=== PATIENT | male | born 1950 | race Caucasian/White ===

== ENCOUNTER 2017-11-17 17:12 | Emergency (ER) | payer OTHER, MEDICARE ==
[~2017-11-17] VITALS: Ht 180.3 cm; Wt 81.8 kg
[~2017-11-17 17:12] MED LIST: GABA-532 PO
[2017-11-17 17:31] VITALS: BP 141/91
== END 2017-11-17 18:29 | disposition home or self-care (01) ==
LOC: ER 17:13
DX: S82.301A Unspecified fracture of lower end of right tibia, initial encounter for closed fracture (principal); F10.129 Alcohol abuse with intoxication, unspecified; Z60.2 Problems related to living alone; W01.0XXA Fall on same level from slipping, tripping and stumbling without subsequent striking against object, initial encounter; Y93.89 Activity, other specified; Y92.89 Other specified places as the place of occurrence of the external cause; Y99.8 Other external cause status; Y90.9 Presence of alcohol in blood, level not specified
CPT/HCPCS: 29125; 29515; 73560; 73610; 99284

== ENCOUNTER 2018-02-02 15:48 | Emergency (ER) | payer MEDICARE, OTHER ==
[~2018-02-02] VITALS: Ht 180.3 cm; Wt 81.8 kg
[~2018-02-02 15:48] MED LIST changes: +CLOP75TA35 PO; +DILT180C66 PO; +FOLI1TAB16 PO; -GABA-532 PO; +GABA300C PO; +MULT-1179 PO; +OMEP20CA10 PO; +SIMV20TA5 PO; +THI100T PO; +TRAM50TA2 PO; +TRAZ-146 PO
[2018-02-02 16:33] LABS: BASOPHILS % (AUTO) 0.3 % (0-1); EOSINOPHILS % (AUTO) 0.2 % (0-6); HEMATOCRIT 43.5 % (42.0-52.0); HEMOGLOBIN 15.1 g/dl (14.0-17.9); LYMPHOCYTES # (AUTO) 0.6 X10'3 (1.1-4.8); LYMPHOCYTES % (AUTO) 8.6 % (21-51); MEAN CORPUSCULAR HEMOGLOBIN 33.5 PG (27.0-31.0); MEAN CORPUSCULAR HGB CONC 34.7 % (33.0-36.5); MEAN CORPUSCULAR VOLUME 96.5 FL (78-98); MONOCYTES # (AUTO) 0.7 X10'3 (0-0.9); MONOCYTES % (AUTO) 9.4 % (2-12); NEUTROPHILS # (AUTO) 5.9 X10'3 (1.8-7.7); NEUTROPHILS % (AUTO) 81.5 % (42-75); PLATELET COUNT 337 X10'3 (140-440); RED BLOOD COUNT 4.51 X10'6 (4.70-6.10); RED CELL DISTRIBUTION WIDTH 14.7 % (11.5-14.5); WHITE BLOOD COUNT 7.3 X10'3 (4.5-11.0)
[2018-02-02 16:42] LABS: INR 0.9 INR; PARTIAL THROMBOPLASTIN TIME 30 SECONDS (22-32); PROTHROMBIN TIME 9.6 SECONDS (9.0-12.0)
[2018-02-02 16:46] LABS: ALANINE AMINOTRANSFERASE 49 U/L (12-78); ALBUMIN 3.9 G/DL (3.4-5.0); ALBUMIN/GLOBULIN RATIO 1.1 (1.1-1.5); ALKALINE PHOSPHATASE 121 IU/L (46-116); ANION GAP 15 (8-16); ASPARTATE AMINO TRANSFERASE 50 U/L (10-37); BILIRUBIN,TOTAL 0.7 MG/DL (0.1-1.0); BLOOD UREA NITROGEN 17 MG/DL (7-18); BUN/CREATININE RATIO 15.5 (5.4-32.0); CALCIUM 9.6 MG/DL (8.5-10.1); CHLORIDE 103 MMOL/L (99-107); GLUCOSE 215 MG/DL (70-104); POTASSIUM 3.7 MMOL/L (3.5-5.1); SODIUM 142 MMOL/L (135-145); TOTAL CARBON DIOXIDE 24.2 MMOL/L (24-32); TOTAL PROTEIN 7.6 G/DL (6.4-8.2); eGFR 66 ML/MIN
[2018-02-02] MEDS ORDERED: normal saline 1000ML IV soln IVB ONE (18:45)
[2018-02-02] MEDS ORDERED: LORazepam 2 mg/ml vial IV ONE (18:45)
[2018-02-02] MEDS ORDERED: cloNIDine 0.1 mg tablet PO STA (20:49)
[2018-02-02 21:27] VITALS: BP 191/92
== END 2018-02-02 21:46 | disposition home or self-care (01) ==
LOC: ER 15:48
DX: R11.2 Nausea with vomiting, unspecified (principal); F10.239 Alcohol dependence with withdrawal, unspecified; Z79.899 Other long term (current) drug therapy; Z60.2 Problems related to living alone
CPT/HCPCS: 36415; 71045; 80053; 84484; 85025; 85610; 85730; 93005; 96361; 96374; 99285; J2060; J7030

== ENCOUNTER 2018-03-06 12:40 | Inpatient (IN) | payer OTHER, MEDICARE ==
[~2018-03-06] VITALS: Ht 180.3 cm; Wt 90.9 kg
[2018-03-06] MEDS ORDERED: SERT25TA PO (13:21)
[2018-03-06] MEDS ORDERED: HYDR-3965 PO (13:21)
[2018-03-06] MEDS ORDERED: DOXY100C2 PO (13:21)
[2018-03-06] MEDS ORDERED: SILD100T PO (13:21)
[2018-03-06] MEDS ORDERED: ROSU5TAB PO (13:21)
[2018-03-06] MEDS ORDERED: GABA-534 PO (13:21)
[2018-03-06] MEDS ORDERED: ONDA4TAB12 PO (13:21)
[2018-03-06] MEDS ORDERED: ATEN-169 PO (13:21)
[2018-03-06] MEDS ORDERED: FURO-150 PO (13:21)
[2018-03-06] MEDS ORDERED: morphine 4 MG/ML inj SYRINge IV ONE (14:10)
[2018-03-06 15:02] LABS: BASOPHILS % (AUTO) 0.6 % (0-1); EOSINOPHILS # (AUTO) 0.1 X10'3 (0-0.9); EOSINOPHILS % (AUTO) 0.8 % (0-6); HEMATOCRIT 41.8 % (42.0-52.0); HEMOGLOBIN 14.4 g/dl (14.0-17.9); LYMPHOCYTES # (AUTO) 1.7 X10'3 (1.1-4.8); LYMPHOCYTES % (AUTO) 19.9 % (21-51); MEAN CORPUSCULAR HEMOGLOBIN 33.1 PG (27.0-31.0); MEAN CORPUSCULAR HGB CONC 34.5 % (33.0-36.5); MEAN CORPUSCULAR VOLUME 96.1 FL (78-98); MEAN PLATELET VOLUME 8.5 FL (7.4-10.4); MONOCYTES # (AUTO) 0.5 X10'3 (0-0.9); MONOCYTES % (AUTO) 5.7 % (2-12); NEUTROPHILS # (AUTO) 6.1 X10'3 (1.8-7.7); PLATELET COUNT 226 X10'3 (140-440); RED BLOOD COUNT 4.35 X10'6 (4.70-6.10); RED CELL DISTRIBUTION WIDTH 15.5 % (11.5-14.5); WHITE BLOOD COUNT 8.4 X10'3 (4.5-11.0)
[2018-03-06 15:17] LABS: ALANINE AMINOTRANSFERASE 26 U/L (12-78); ALBUMIN 3.8 G/DL (3.4-5.0); ALBUMIN/GLOBULIN RATIO 1.1 (1.1-1.5); ALKALINE PHOSPHATASE 106 IU/L (46-116); ANION GAP 16 (8-16); ASPARTATE AMINO TRANSFERASE 21 U/L (10-37); BILIRUBIN,TOTAL 0.7 MG/DL (0.1-1.0); BLOOD UREA NITROGEN 19 MG/DL (7-18); BUN/CREATININE RATIO 19.4 (5.4-32.0); CALCIUM 9.5 MG/DL (8.5-10.1); CHLORIDE 105 MMOL/L (99-107); CREATININE 0.98 MG/DL (0.60-1.10); GLUCOSE 55 MG/DL (70-104); POTASSIUM 4.2 MMOL/L (3.5-5.1); SODIUM 140 MMOL/L (135-145); TOTAL CARBON DIOXIDE 19.2 MMOL/L (24-32); TOTAL PROTEIN 7.2 G/DL (6.4-8.2); eGFR 76 ML/MIN
[2018-03-06] MEDS ORDERED: CefTRIAXone/D5W-Rocephin 1gm 50 ML IV ONE ×2 (16:50→19:15)
[2018-03-06] MEDS ORDERED: vancomycin/NS 1 GM ADD-VANTAGE 250 ML IV ONE (16:50)
[2018-03-06] MEDS ORDERED: normal saline 1000ml 1,000 ML IV SCH (19:14)
[2018-03-06] MEDS ORDERED: magnesium 4gm in 100ml NS 100 ML IV PRN (19:15)
[2018-03-06] MEDS ORDERED: dextrose 50%-water 50ml dispensing syringe IV PRN ×3 (19:15→21:30)
[2018-03-06] MEDS ORDERED: magnesium Cl slow-release 64mg tablet PO PRN (19:15)
[2018-03-06] MEDS ORDERED: diphenhydrAMINE 25mg capsule PO PRN (19:15)
[2018-03-06] MEDS ORDERED: thiamine 100mg/ml 2ml inj. IV ONE (19:15)
[2018-03-06] MEDS ORDERED: haloperidol lactate 5mg/ml inj IM PRN (19:15)
[2018-03-06] MEDS ORDERED: mag hydrox/Alum hydrox/simeth 30ml oral suspension PO PRN (19:15)
[2018-03-06] MEDS ORDERED: LORazepam 2 mg/ml vial IV PRN (19:15)
[2018-03-06] MEDS ORDERED: potassium Cl 40MEQ/NS 500ml 500 ML IV PRN ×2 (19:15)
[2018-03-06] MEDS ORDERED: potassium Cl 20 mEq SR tablet PO PRN ×2 (19:15)
[2018-03-06] MEDS ORDERED: acetaminophen 325mg tablet PO PRN ×2 (19:15)
[2018-03-06] MEDS ORDERED: HYDROcodone/acetaminophen 5mg/325mg tablet PO PRN (19:15)
[2018-03-06] MEDS ORDERED: magnesium 1gm/100ml D5W IVPB 100 ML IV PRN (19:15)
[2018-03-06] MEDS ORDERED: haloperidol 5mg tablet PO PRN (19:15)
[2018-03-06] MEDS ORDERED: magnesium hydroxide 30ml (MOM) UD suspension PO PRN (19:15)
[2018-03-06] MEDS ORDERED: ondansetron/PF 4mg/2ml inj IV PRN (19:15)
[2018-03-06] MEDS ORDERED: morphine 4 MG/ML inj SYRINge IV PRN (19:15)
[2018-03-06] MEDS: HYDROcodone/acetaminophen 10/325mg tab PO PRN (19:49)
[2018-03-06] MEDS ORDERED: non-formulary drug (Trazodone HCl 1 TAB) PO SCH (21:00)
[2018-03-06] MEDS ORDERED: temazepam 15mg capsule PO PRN (21:00)
[2018-03-06 21:30] VITALS: BP 163/84
[2018-03-06] MEDS ORDERED: glucagon, human recombinant 1mg kit SUBCUT PRN (21:30)
[2018-03-06] MEDS ORDERED: dextrose ORAL solution 15 GM/59 ML bottle PO PRN (21:30)
[2018-03-06] MEDS: K and/or MAG REPLACEMENT MC SCH (21:31)
[2018-03-06] MEDS: vancomycin inj 1,250 MG in normal saline 250ml IV soln 250 ML IV SCH (21:32)
[2018-03-06] MEDS: dextrose ORAL solution 15 GM/59 ML bottle PO PRN (21:44)
[2018-03-06] MEDS: atenolol 50mg tablet PO SCH (22:14)
[2018-03-06] MEDS: traZODone 50mg tablet PO SCH (22:14)
[2018-03-06] MEDS: heparin, porcine 5000 units/ml vial SQ SCH (22:15)
[2018-03-06] MEDS: morphine 4 MG/ML inj SYRINge IV PRN (22:15)
[2018-03-06] MEDS: gabapentin 400mg capsule PO SCH (23:58)
[2018-03-07] MEDS: dextrose ORAL solution 15 GM/59 ML bottle PO PRN (02:37)
[2018-03-07] MEDS: dextrose 5%-1/2 normal saline 1,000 ML IV SCH ×2 (03:26→19:45)
[2018-03-07] MEDS: morphine 4 MG/ML inj SYRINge IV PRN (04:27)
[2018-03-07 05:00] VITALS: BP 159/79
[2018-03-07 05:28] LABS: BASOPHILS % (AUTO) 0.7 % (0-1); EOSINOPHILS # (AUTO) 0.1 X10'3 (0-0.9); EOSINOPHILS % (AUTO) 1.7 % (0-6); HEMOGLOBIN 12.6 g/dl (14.0-17.9); LYMPHOCYTES # (AUTO) 1.5 X10'3 (1.1-4.8); MEAN CORPUSCULAR HEMOGLOBIN 32.6 PG (27.0-31.0); MEAN CORPUSCULAR VOLUME 95.9 FL (78-98); MEAN PLATELET VOLUME 9.5 FL (7.4-10.4); MONOCYTES # (AUTO) 0.6 X10'3 (0-0.9); NEUTROPHILS # (AUTO) 3.8 X10'3 (1.8-7.7); NEUTROPHILS % (AUTO) 62.6 % (42-75); PLATELET COUNT 185 X10'3 (140-440); RED BLOOD COUNT 3.86 X10'6 (4.70-6.10); RED CELL DISTRIBUTION WIDTH 15.8 % (11.5-14.5); WHITE BLOOD COUNT 6.1 X10'3 (4.5-11.0)
[2018-03-07 05:50] LABS: ALANINE AMINOTRANSFERASE 27 U/L (12-78); ALBUMIN 3.1 G/DL (3.4-5.0); ALKALINE PHOSPHATASE 86 IU/L (46-116); ANION GAP 13 (8-16); ASPARTATE AMINO TRANSFERASE 21 U/L (10-37); BILIRUBIN,TOTAL 0.7 MG/DL (0.1-1.0); BLOOD UREA NITROGEN 21 MG/DL (7-18); BUN/CREATININE RATIO 18.9 (5.4-32.0); CALCIUM 8.7 MG/DL (8.5-10.1); CHLORIDE 105 MMOL/L (99-107); CREATININE 1.11 MG/DL (0.60-1.10); GLUCOSE 114 MG/DL (70-104); MAGNESIUM 1.8 MG/DL (1.5-2.4); PHOSPHORUS 3.3 MG/DL (2.3-4.5); POTASSIUM 3.7 MMOL/L (3.5-5.1); SODIUM 140 MMOL/L (135-145); TOTAL CARBON DIOXIDE 22.1 MMOL/L (24-32); TOTAL PROTEIN 6.1 G/DL (6.4-8.2); eGFR 66 ML/MIN
[2018-03-07] MEDS: pantoprazole 40mg Tablet.DR PO SCH (07:32)
[2018-03-07] MEDS: folic acid 1mg tablet PO SCH (07:33)
[2018-03-07] MEDS: diltiazem CD 180mg cap (once-daily) PO SCH (07:33)
[2018-03-07] MEDS: gabapentin 400mg capsule PO SCH ×2 (07:34→16:13)
[2018-03-07] MEDS: atorvastatin 20mg tablet PO SCH (07:34)
[2018-03-07] MEDS: furosemide 20MG tablet PO SCH (07:34)
[2018-03-07] MEDS: thiamine 100mg tablet PO SCH (07:35)
[2018-03-07] MEDS: multivitamins, therapeutics tablet PO SCH (07:35)
[2018-03-07] MEDS: clopidogrel 75mg tablet PO SCH (07:35)
[2018-03-07] MEDS: sertraline 50mg tablet PO SCH (07:35)
[2018-03-07] MEDS: heparin, porcine 5000 units/ml vial SQ SCH ×2 (07:37→20:41)
[2018-03-07] MEDS: CefTRIAXone 2gm/D5W 50ml 50 ML IV SCH (07:48)
[2018-03-07] MEDS ORDERED: ROSUVASTATIN CALCIUM 10 MG PO SCH (08:00)
[2018-03-07] MEDS ORDERED: non-formulary drug (Omeprazole 1 CAP) PO SCH (08:00)
[2018-03-07] MEDS: K and/or MAG REPLACEMENT MC SCH (08:00)
[2018-03-07 10:00] VITALS: BP 116/48
[2018-03-07] MEDS: HYDROcodone/acetaminophen 10/325mg tab PO PRN ×4 (10:02→20:39)
[2018-03-07] MEDS: vancomycin inj 1,250 MG in normal saline 250ml IV soln 250 ML IV SCH (10:16)
[2018-03-07 18:00] VITALS: BP 135/61
[2018-03-07] MEDS: traZODone 50mg tablet PO SCH (20:38)
[2018-03-07] MEDS: lactobacillus rhamnosus 10,000 MMU CELLS/CAPSULE PO SCH (20:38)
[2018-03-07] MEDS: atenolol 50mg tablet PO SCH (20:39)
[2018-03-07 22:00] VITALS: BP 124/59
[2018-03-08] MEDS: gabapentin 400mg capsule PO SCH ×3 (00:01→16:43)
[2018-03-08] MEDS: vancomycin inj 1,250 MG in normal saline 250ml IV soln 250 ML IV SCH (00:01)
[2018-03-08] MEDS: dextrose 5%-1/2 normal saline 1,000 ML IV SCH ×2 (00:04→16:50)
[2018-03-08] MEDS: HYDROcodone/acetaminophen 10/325mg tab PO PRN ×5 (00:46→20:28)
[2018-03-08 05:00] VITALS: BP 131/59
[2018-03-08] MEDS: pantoprazole 40mg Tablet.DR PO SCH (07:43)
[2018-03-08] MEDS: diltiazem CD 180mg cap (once-daily) PO SCH (07:47)
[2018-03-08] MEDS: furosemide 20MG tablet PO SCH (07:48)
[2018-03-08] MEDS: lactobacillus rhamnosus 10,000 MMU CELLS/CAPSULE PO SCH ×2 (07:48→20:28)
[2018-03-08] MEDS: folic acid 1mg tablet PO SCH (07:48)
[2018-03-08] MEDS: clopidogrel 75mg tablet PO SCH (07:49)
[2018-03-08] MEDS: multivitamins, therapeutics tablet PO SCH (07:49)
[2018-03-08] MEDS: thiamine 100mg tablet PO SCH (07:49)
[2018-03-08] MEDS: atorvastatin 20mg tablet PO SCH (07:49)
[2018-03-08] MEDS: sertraline 50mg tablet PO SCH (07:50)
[2018-03-08] MEDS: heparin, porcine 5000 units/ml vial SQ SCH ×2 (07:50→20:30)
[2018-03-08] MEDS: K and/or MAG REPLACEMENT MC SCH (08:00)
[2018-03-08] MEDS ORDERED: vancomycin inj 1,250 MG in normal saline 250ml IV soln 250 ML IV SCH (08:17)
[2018-03-08 08:21] LABS: BASOPHILS % (AUTO) 0.8 % (0-1); EOSINOPHILS # (AUTO) 0.2 X10'3 (0-0.9); EOSINOPHILS % (AUTO) 4.8 % (0-6); HEMATOCRIT 35.5 % (42.0-52.0); LYMPHOCYTES # (AUTO) 1.4 X10'3 (1.1-4.8); LYMPHOCYTES % (AUTO) 27.7 % (21-51); MEAN CORPUSCULAR HEMOGLOBIN 32.7 PG (27.0-31.0); MEAN CORPUSCULAR HGB CONC 33.8 % (33.0-36.5); MEAN CORPUSCULAR VOLUME 96.5 FL (78-98); MEAN PLATELET VOLUME 9.2 FL (7.4-10.4); MONOCYTES # (AUTO) 0.6 X10'3 (0-0.9); MONOCYTES % (AUTO) 12.5 % (2-12); NEUTROPHILS # (AUTO) 2.8 X10'3 (1.8-7.7); NEUTROPHILS % (AUTO) 54.2 % (42-75); PLATELET COUNT 167 X10'3 (140-440); RED BLOOD COUNT 3.68 X10'6 (4.70-6.10); RED CELL DISTRIBUTION WIDTH 15.9 % (11.5-14.5); WHITE BLOOD COUNT 5.1 X10'3 (4.5-11.0)
[2018-03-08 09:29] LABS: ALANINE AMINOTRANSFERASE 25 U/L (12-78); ALKALINE PHOSPHATASE 94 IU/L (46-116); ANION GAP 10 (8-16); ASPARTATE AMINO TRANSFERASE 21 U/L (10-37); BILIRUBIN,TOTAL 0.4 MG/DL (0.1-1.0); BLOOD UREA NITROGEN 22 MG/DL (7-18); CALCIUM 8.5 MG/DL (8.5-10.1); CHLORIDE 106 MMOL/L (99-107); GLUCOSE 123 MG/DL (70-104); MAGNESIUM 1.6 MG/DL (1.5-2.4); POTASSIUM 3.9 MMOL/L (3.5-5.1); SODIUM 140 MMOL/L (135-145); TOTAL CARBON DIOXIDE 24.2 MMOL/L (24-32); TOTAL PROTEIN 5.9 G/DL (6.4-8.2); eGFR 66 ML/MIN
[2018-03-08] MEDS: CefTRIAXone 2gm/D5W 50ml 50 ML IV SCH (10:01)
[2018-03-08 18:00] VITALS: BP 132/78
[2018-03-08] MEDS: indomethacin 25mg capsule PO SCH (19:05)
[2018-03-08] MEDS ORDERED: LORazepam 1 MG tablet PO PRN (19:15)
[2018-03-08] MEDS ORDERED: LORazepam 2 mg/ml vial IV PRN (19:15)
[2018-03-08 20:15] VITALS: BP 165/78
[2018-03-08] MEDS: atenolol 50mg tablet PO SCH (20:29)
[2018-03-08] MEDS: traZODone 50mg tablet PO SCH (20:30)
[2018-03-08 22:00] VITALS: BP 141/72
[2018-03-09] MEDS: HYDROcodone/acetaminophen 10/325mg tab PO PRN ×5 (01:13→21:06)
[2018-03-09 06:00] VITALS: BP 171/62
[2018-03-09] MEDS: pantoprazole 40mg Tablet.DR PO SCH (07:07)
[2018-03-09] MEDS: diltiazem CD 180mg cap (once-daily) PO SCH (07:07)
[2018-03-09] MEDS: gabapentin 400mg capsule PO SCH ×3 (07:08→16:52)
[2018-03-09] MEDS: clopidogrel 75mg tablet PO SCH (07:08)
[2018-03-09] MEDS: furosemide 20MG tablet PO SCH (07:08)
[2018-03-09] MEDS: thiamine 100mg tablet PO SCH (07:08)
[2018-03-09] MEDS: folic acid 1mg tablet PO SCH (07:08)
[2018-03-09] MEDS: atorvastatin 20mg tablet PO SCH (07:08)
[2018-03-09] MEDS: multivitamins, therapeutics tablet PO SCH (07:08)
[2018-03-09] MEDS: indomethacin 25mg capsule PO SCH ×3 (07:08→16:52)
[2018-03-09] MEDS: lactobacillus rhamnosus 10,000 MMU CELLS/CAPSULE PO SCH ×2 (07:08→21:06)
[2018-03-09] MEDS: heparin, porcine 5000 units/ml vial SQ SCH ×2 (07:09→21:07)
[2018-03-09] MEDS: sertraline 50mg tablet PO SCH (07:12)
[2018-03-09 08:00] LABS: BASOPHILS % (AUTO) 0.6 % (0-1); EOSINOPHILS # (AUTO) 0.3 X10'3 (0-0.9); EOSINOPHILS % (AUTO) 5.1 % (0-6); HEMATOCRIT 35.9 % (42.0-52.0); HEMOGLOBIN 12.1 g/dl (14.0-17.9); LYMPHOCYTES % (AUTO) 19.1 % (21-51); MEAN CORPUSCULAR HEMOGLOBIN 32.5 PG (27.0-31.0); MEAN CORPUSCULAR HGB CONC 33.8 % (33.0-36.5); MEAN CORPUSCULAR VOLUME 96.3 FL (78-98); MEAN PLATELET VOLUME 9.5 FL (7.4-10.4); MONOCYTES # (AUTO) 0.4 X10'3 (0-0.9); MONOCYTES % (AUTO) 8.2 % (2-12); NEUTROPHILS # (AUTO) 3.7 X10'3 (1.8-7.7); PLATELET COUNT 158 X10'3 (140-440); RED BLOOD COUNT 3.72 X10'6 (4.70-6.10); RED CELL DISTRIBUTION WIDTH 15.5 % (11.5-14.5); WHITE BLOOD COUNT 5.5 X10'3 (4.5-11.0)
[2018-03-09] MEDS: K and/or MAG REPLACEMENT MC SCH (08:00)
[2018-03-09 08:25] LABS: ALANINE AMINOTRANSFERASE 27 U/L (12-78); ALKALINE PHOSPHATASE 88 IU/L (46-116); ANION GAP 9 (8-16); ASPARTATE AMINO TRANSFERASE 19 U/L (10-37); BILIRUBIN,TOTAL 0.5 MG/DL (0.1-1.0); BLOOD UREA NITROGEN 20 MG/DL (7-18); BUN/CREATININE RATIO 17.9 (5.4-32.0); CALCIUM 8.9 MG/DL (8.5-10.1); CHLORIDE 106 MMOL/L (99-107); CREATININE 1.12 MG/DL (0.60-1.10); GLUCOSE 109 MG/DL (70-104); POTASSIUM 3.9 MMOL/L (3.5-5.1); SODIUM 141 MMOL/L (135-145); TOTAL PROTEIN 5.9 G/DL (6.4-8.2); eGFR 65 ML/MIN
[2018-03-09 10:00] VITALS: BP 112/58
[2018-03-09] MEDS ORDERED: VANCOMYCIN LEVEL IV ONE (16:30)
[2018-03-09 18:00] VITALS: BP 173/77
[2018-03-09] MEDS: traZODone 50mg tablet PO SCH (21:06)
[2018-03-09] MEDS: atenolol 50mg tablet PO SCH (21:07)
[2018-03-09 22:00] VITALS: BP 161/75
[2018-03-10] MEDS: gabapentin 400mg capsule PO SCH ×3 (01:01→16:03)
[2018-03-10] MEDS: HYDROcodone/acetaminophen 10/325mg tab PO PRN ×3 (01:01→16:03)
[2018-03-10 06:00] VITALS: BP 129/70
[2018-03-10 06:14] LABS: BASOPHILS % (AUTO) 0.5 % (0-1); EOSINOPHILS # (AUTO) 0.3 X10'3 (0-0.9); EOSINOPHILS % (AUTO) 6.6 % (0-6); HEMATOCRIT 36.2 % (42.0-52.0); HEMOGLOBIN 12.5 g/dl (14.0-17.9); LYMPHOCYTES # (AUTO) 1.3 X10'3 (1.1-4.8); MEAN CORPUSCULAR HEMOGLOBIN 32.7 PG (27.0-31.0); MEAN CORPUSCULAR HGB CONC 34.4 % (33.0-36.5); MEAN CORPUSCULAR VOLUME 95.1 FL (78-98); MEAN PLATELET VOLUME 9.3 FL (7.4-10.4); MONOCYTES # (AUTO) 0.5 X10'3 (0-0.9); MONOCYTES % (AUTO) 11.6 % (2-12); NEUTROPHILS # (AUTO) 2.6 X10'3 (1.8-7.7); NEUTROPHILS % (AUTO) 54.3 % (42-75); PLATELET COUNT 157 X10'3 (140-440); RED BLOOD COUNT 3.81 X10'6 (4.70-6.10); WHITE BLOOD COUNT 4.7 X10'3 (4.5-11.0)
[2018-03-10 06:29] LABS: ALANINE AMINOTRANSFERASE 34 U/L (12-78); ALBUMIN 3.1 G/DL (3.4-5.0); ALKALINE PHOSPHATASE 92 IU/L (46-116); ANION GAP 7 (8-16); ASPARTATE AMINO TRANSFERASE 29 U/L (10-37); BILIRUBIN,TOTAL 0.4 MG/DL (0.1-1.0); BLOOD UREA NITROGEN 29 MG/DL (7-18); BUN/CREATININE RATIO 26.9 (5.4-32.0); CALCIUM 9.1 MG/DL (8.5-10.1); CHLORIDE 104 MMOL/L (99-107); CREATININE 1.08 MG/DL (0.60-1.10); GLUCOSE 111 MG/DL (70-104); POTASSIUM 4.2 MMOL/L (3.5-5.1); SODIUM 138 MMOL/L (135-145); TOTAL CARBON DIOXIDE 26.7 MMOL/L (24-32); TOTAL PROTEIN 6.3 G/DL (6.4-8.2); eGFR 68 ML/MIN
[2018-03-10] MEDS: K and/or MAG REPLACEMENT MC SCH (08:00)
[2018-03-10] MEDS: pantoprazole 40mg Tablet.DR PO SCH (09:02)
[2018-03-10] MEDS: multivitamins, therapeutics tablet PO SCH (09:02)
[2018-03-10] MEDS: thiamine 100mg tablet PO SCH (09:02)
[2018-03-10] MEDS: folic acid 1mg tablet PO SCH (09:02)
[2018-03-10] MEDS: diltiazem CD 180mg cap (once-daily) PO SCH (09:02)
[2018-03-10] MEDS: lactobacillus rhamnosus 10,000 MMU CELLS/CAPSULE PO SCH ×2 (09:02→20:06)
[2018-03-10] MEDS: clopidogrel 75mg tablet PO SCH (09:03)
[2018-03-10] MEDS: furosemide 20MG tablet PO SCH (09:03)
[2018-03-10] MEDS: atorvastatin 20mg tablet PO SCH (09:03)
[2018-03-10] MEDS: heparin, porcine 5000 units/ml vial SQ SCH ×2 (09:03→20:07)
[2018-03-10] MEDS: indomethacin 25mg capsule PO SCH ×3 (09:03→17:34)
[2018-03-10] MEDS: sertraline 50mg tablet PO SCH (09:46)
[2018-03-10 10:00] VITALS: BP 143/61
[2018-03-10 16:00] VITALS: BP 136/66
[2018-03-10 18:00] VITALS: BP 146/68
[2018-03-10] MEDS ORDERED: LORazepam 1 MG tablet PO PRN (19:15)
[2018-03-10] MEDS ORDERED: LORazepam 2 mg/ml vial IV PRN (19:15)
[2018-03-10] MEDS: traZODone 50mg tablet PO SCH (20:06)
[2018-03-10] MEDS: atenolol 50mg tablet PO SCH (20:07)
[2018-03-10 22:00] VITALS: BP 124/53
[2018-03-11] MEDS: gabapentin 400mg capsule PO SCH ×4 (00:01→23:56)
[2018-03-11] MEDS: HYDROcodone/acetaminophen 10/325mg tab PO PRN ×6 (04:06→22:33)
[2018-03-11 05:23] LABS: BASOPHILS % (AUTO) 0.6 % (0-1); EOSINOPHILS # (AUTO) 0.4 X10'3 (0-0.9); EOSINOPHILS % (AUTO) 6.2 % (0-6); HEMATOCRIT 38.1 % (42.0-52.0); HEMOGLOBIN 12.9 g/dl (14.0-17.9); LYMPHOCYTES # (AUTO) 1.7 X10'3 (1.1-4.8); LYMPHOCYTES % (AUTO) 30.4 % (21-51); MEAN CORPUSCULAR HEMOGLOBIN 32.8 PG (27.0-31.0); MEAN CORPUSCULAR HGB CONC 33.9 % (33.0-36.5); MEAN CORPUSCULAR VOLUME 96.7 FL (78-98); MEAN PLATELET VOLUME 9.4 FL (7.4-10.4); MONOCYTES # (AUTO) 0.7 X10'3 (0-0.9); MONOCYTES % (AUTO) 12.5 % (2-12); NEUTROPHILS # (AUTO) 2.9 X10'3 (1.8-7.7); NEUTROPHILS % (AUTO) 50.3 % (42-75); PLATELET COUNT 157 X10'3 (140-440); RED BLOOD COUNT 3.93 X10'6 (4.70-6.10); RED CELL DISTRIBUTION WIDTH 15.9 % (11.5-14.5); WHITE BLOOD COUNT 5.7 X10'3 (4.5-11.0)
[2018-03-11 05:41] LABS: ALANINE AMINOTRANSFERASE 39 U/L (12-78); ALBUMIN 3.2 G/DL (3.4-5.0); ALKALINE PHOSPHATASE 105 IU/L (46-116); ANION GAP 5 (8-16); ASPARTATE AMINO TRANSFERASE 33 U/L (10-37); BILIRUBIN,TOTAL 0.2 MG/DL (0.1-1.0); BLOOD UREA NITROGEN 25 MG/DL (7-18); BUN/CREATININE RATIO 20.5 (5.4-32.0); CALCIUM 9.1 MG/DL (8.5-10.1); CHLORIDE 104 MMOL/L (99-107); CREATININE 1.22 MG/DL (0.60-1.10); GLUCOSE 112 MG/DL (70-104); POTASSIUM 4.5 MMOL/L (3.5-5.1); SODIUM 138 MMOL/L (135-145); TOTAL CARBON DIOXIDE 28.8 MMOL/L (24-32); TOTAL PROTEIN 6.5 G/DL (6.4-8.2); eGFR 59 ML/MIN
[2018-03-11 06:00] VITALS: BP 109/51
[2018-03-11 07:00] VITALS: BP 122/75
[2018-03-11] MEDS: K and/or MAG REPLACEMENT MC SCH (08:00)
[2018-03-11] MEDS: pantoprazole 40mg Tablet.DR PO SCH (08:05)
[2018-03-11] MEDS: lactobacillus rhamnosus 10,000 MMU CELLS/CAPSULE PO SCH ×2 (08:05→20:24)
[2018-03-11] MEDS: multivitamins, therapeutics tablet PO SCH (08:05)
[2018-03-11] MEDS: atorvastatin 20mg tablet PO SCH (08:05)
[2018-03-11] MEDS: thiamine 100mg tablet PO SCH (08:05)
[2018-03-11] MEDS: furosemide 20MG tablet PO SCH (08:05)
[2018-03-11] MEDS: folic acid 1mg tablet PO SCH (08:05)
[2018-03-11] MEDS: sertraline 50mg tablet PO SCH (08:06)
[2018-03-11] MEDS: diltiazem CD 180mg cap (once-daily) PO SCH (08:06)
[2018-03-11] MEDS: heparin, porcine 5000 units/ml vial SQ SCH ×2 (08:07→20:24)
[2018-03-11] MEDS: indomethacin 25mg capsule PO SCH ×3 (08:14→16:57)
[2018-03-11] MEDS: clopidogrel 75mg tablet PO SCH (09:04)
[2018-03-11 10:00] VITALS: BP 119/62
[2018-03-11 18:00] VITALS: BP 149/65
[2018-03-11] MEDS: atenolol 50mg tablet PO SCH (20:24)
[2018-03-11 22:00] VITALS: BP 130/62
[2018-03-11] MEDS: traZODone 50mg tablet PO SCH (22:33)
[2018-03-12] MEDS: HYDROcodone/acetaminophen 10/325mg tab PO PRN ×2 (02:43→14:16)
[2018-03-12 06:00] VITALS: BP 101/50
[2018-03-12] MEDS: K and/or MAG REPLACEMENT MC SCH (08:00)
[2018-03-12] MEDS: pantoprazole 40mg Tablet.DR PO SCH (08:58)
[2018-03-12] MEDS: lactobacillus rhamnosus 10,000 MMU CELLS/CAPSULE PO SCH (08:59)
[2018-03-12] MEDS: diltiazem CD 180mg cap (once-daily) PO SCH (08:59)
[2018-03-12] MEDS: furosemide 20MG tablet PO SCH (08:59)
[2018-03-12] MEDS: folic acid 1mg tablet PO SCH (08:59)
[2018-03-12] MEDS: thiamine 100mg tablet PO SCH (09:00)
[2018-03-12] MEDS: clopidogrel 75mg tablet PO SCH (09:00)
[2018-03-12] MEDS: sertraline 50mg tablet PO SCH (09:00)
[2018-03-12] MEDS: indomethacin 25mg capsule PO SCH ×2 (09:00→14:13)
[2018-03-12] MEDS: atorvastatin 20mg tablet PO SCH (09:00)
[2018-03-12] MEDS: multivitamins, therapeutics tablet PO SCH (09:00)
[2018-03-12] MEDS: gabapentin 400mg capsule PO SCH ×2 (09:00→16:49)
[2018-03-12] MEDS: heparin, porcine 5000 units/ml vial SQ SCH (09:06)
[2018-03-12 10:00] VITALS: BP 157/69
== END 2018-03-12 17:27 | disposition home or self-care (01) | DRG 872 ==
LOC: ER 12:40 → ED HOLD 19:14 → EDBEDREQ 19:51 → ORTHO 4S 21:15
PROVIDERS: ADMIT Family Medicine; ATTEND Internal Medicine
DX: A41.9 Sepsis, unspecified organism (principal); A52.16 Charcot's arthropathy (tabetic); E87.2 Acidosis; L03.115 Cellulitis of right lower limb; F32.9 Major depressive disorder, single episode, unspecified; K21.9 Gastro-esophageal reflux disease without esophagitis; F10.20 Alcohol dependence, uncomplicated; E78.00 Pure hypercholesterolemia, unspecified; E78.5 Hyperlipidemia, unspecified; F17.200 Nicotine dependence, unspecified, uncomplicated; F43.10 Post-traumatic stress disorder, unspecified; I10 Essential (primary) hypertension; I48.91 Unspecified atrial fibrillation; I73.9 Peripheral vascular disease, unspecified; G47.00 Insomnia, unspecified; M06.9 Rheumatoid arthritis, unspecified; N40.0 Benign prostatic hyperplasia without lower urinary tract symptoms; Z79.02 Long term (current) use of antithrombotics/antiplatelets; Z79.899 Other long term (current) drug therapy; Z85.118 Personal history of other malignant neoplasm of bronchus and lung; Z85.819 Personal history of malignant neoplasm of unspecified site of lip, oral cavity, and pharynx; Z87.440 Personal history of urinary (tract) infections; Z92.3 Personal history of irradiation; Z82.0 Family history of epilepsy and other diseases of the nervous system; Z71.41 Alcohol abuse counseling and surveillance of alcoholic; Z71.6 Tobacco abuse counseling
CPT/HCPCS: 36415; 71045; 73610; 73630; 78805; 80053; 82948; 83605; 83735; 84100; 84145; 84550; 85025; 85651; 86140; 87040; 87070; 93971; 96365; 96375; 97116; 97530; 99285; A9547; J0696; J1644; J2060; J2270; J3370; J3411; J7030

== ENCOUNTER 2018-05-23 15:35 | Emergency (ER) | payer MEDICARE, OTHER ==
[~2018-05-23] VITALS: Ht 180.3 cm; Wt 75.0 kg
[~2018-05-23 15:35] MED LIST changes: +ATEN-169 PO; +FURO-150 PO; +GABA-534 PO; -GABA300C PO; +HYDR-3965 PO; +ONDA4TAB12 PO; +ROSU5TAB PO; +SERT25TA PO; +SILD100T PO; -SIMV20TA5 PO; -TRAM50TA2 PO; -TRAZ-146 PO; +TRAZ-219 PO
[2018-05-23 16:10] VITALS: BP 122/72
[2018-05-23] MEDS ORDERED: BUPIVAcaine/PF 2.5 mg/ml (0.25%) 30ml vial IJ ONE (16:20)
[2018-05-23 16:49] LABS: BASOPHILS # (AUTO) 0.2 X10'3 (0-0.2); EOSINOPHILS % (AUTO) 0.6 % (0-6); HEMATOCRIT 46.1 % (42.0-52.0); HEMOGLOBIN 15.8 g/dl (14.0-17.9); LYMPHOCYTES # (AUTO) 0.9 X10'3 (1.1-4.8); LYMPHOCYTES % (AUTO) 11.9 % (21-51); MEAN CORPUSCULAR HEMOGLOBIN 31.7 PG (27.0-31.0); MEAN CORPUSCULAR HGB CONC 34.3 % (33.0-36.5); MEAN CORPUSCULAR VOLUME 92.5 FL (78-98); MEAN PLATELET VOLUME 8.5 FL (7.4-10.4); MONOCYTES # (AUTO) 0.5 X10'3 (0-0.9); MONOCYTES % (AUTO) 6.7 % (2-12); NEUTROPHILS # (AUTO) 6.2 X10'3 (1.8-7.7); NEUTROPHILS % (AUTO) 78.8 % (42-75); PLATELET COUNT 240 X10'3 (140-440); RED BLOOD COUNT 4.99 X10'6 (4.70-6.10); RED CELL DISTRIBUTION WIDTH 14.2 % (11.5-14.5); WHITE BLOOD COUNT 7.8 X10'3 (4.5-11.0)
[2018-05-23 17:00] LABS: ALANINE AMINOTRANSFERASE 55 U/L (12-78); ALBUMIN 3.4 G/DL (3.4-5.0); ALKALINE PHOSPHATASE 104 IU/L (46-116); ANION GAP 14 (8-16); ASPARTATE AMINO TRANSFERASE 56 U/L (10-37); BILIRUBIN,TOTAL 0.6 MG/DL (0.1-1.0); BLOOD UREA NITROGEN 19 MG/DL (7-18); BUN/CREATININE RATIO 10.4 (5.4-32.0); CALCIUM 9.2 MG/DL (8.5-10.1); CHLORIDE 103 MMOL/L (99-107); CREATININE 1.83 MG/DL (0.60-1.10); GLUCOSE 134 MG/DL (70-104); POTASSIUM 4.1 MMOL/L (3.5-5.1); SODIUM 141 MMOL/L (135-145); TOTAL CARBON DIOXIDE 24.3 MMOL/L (24-32); TOTAL PROTEIN 6.9 G/DL (6.4-8.2); eGFR 37 ML/MIN
[2018-05-23] MEDS ORDERED: CEPH500C5 PO (18:19)
== END 2018-05-23 18:51 | disposition home or self-care (01) ==
LOC: ER 15:35
DX: S51.012A Laceration without foreign body of left elbow, initial encounter (principal); I10 Essential (primary) hypertension; I25.10 Atherosclerotic heart disease of native coronary artery without angina pectoris; E78.00 Pure hypercholesterolemia, unspecified; I48.91 Unspecified atrial fibrillation; K21.9 Gastro-esophageal reflux disease without esophagitis; Z86.73 Personal history of transient ischemic attack (TIA), and cerebral infarction without residual deficits; Z79.2 Long term (current) use of antibiotics; Z79.899 Other long term (current) drug therapy; Z60.2 Problems related to living alone; W26.8XXA Contact with other sharp object(s), not elsewhere classified, initial encounter; Y93.89 Activity, other specified; Y92.89 Other specified places as the place of occurrence of the external cause; Y99.8 Other external cause status
CPT/HCPCS: 12002; 36415; 70450; 80053; 84484; 85025; 93005; 99285; J3490